=== PATIENT | female | born 1940 | race Caucasian/White ===

== ENCOUNTER 2020-09-15 05:56 | Inpatient (IN) | payer OTHER ==
[~2020-09-15] VITALS: Ht 154.9 cm; Wt 79.9 kg
[2020-09-15 06:53] LABS: Basophils # (auto) 0.1 10 ^3/uL (0-0.2); Basophils % (auto) 1.3 % (0.0-2.0); Eosinophils # (auto) 0.1 10 ^3/uL (0-0.8); Eosinophils % (auto) 0.8 % (0.0-7.0); Hematocrit 36.2 % (36.0-46.0); Hemoglobin 12.2 g/dL (12.2-16.2); Mean Corpuscular Hemoglobin 31.7 pg (28.0-32.0); Mean Corpuscular Hgb Conc. 33.6 g/dL (32.0-36.0); Mean Corpuscular Volume 94.5 fL (80.0-100.0); Monocytes # (auto) 0.6 10 ^3/uL (0-1.3); Monocytes % (auto) 5.6 % (0.0-12.0); Neutrophils # (auto) 8.9 10 ^3/uL (1.6-8.6); Neutrophils % (auto) 83.3 % (37.0-80.0); Platelet Count (auto) 236 10^3/uL (140-450); Red Blood Cells 3.83 10^6/uL (4.0-5.20); Red Cell Distribution Width 12.6 % (11.8-14.3); White Blood Cell 10.7 10^3/uL (4.4-10.8)
[2020-09-15 07:03] LABS: Chloride 106 mmol/L (98-107); Potassium 3.9 mmol/L (3.5-5.1); Sodium 137 mmol/L (136-145)
[2020-09-15 07:07] LABS: Alanine Aminotransferase 19 U/L (13-56); Albumin 3.3 g/dL (3.4-5.0); Anion Gap 7 (5-15); Aspartate Aminotransferase 17 U/L (15-37); BUN/Creatinine Ratio 18.8; Blood Urea Nitrogen 25 mg/dL (7-18); Calcium 8.3 mg/dL (8.5-10.1); Carbon Dioxide 24 mmol/L (21-32); GFR African American 49 mL/min; GFR Non-African American 41 mL/min; Glucose 222 mg/dL (74-106)
[2020-09-15 07:12] LABS: Alkaline Phosphatase 86 U/L (45-117); Bilirubin, Total 0.7 mg/dL (0.2-1.0)
[2020-09-15] MEDS ORDERED: ACETAMINOPHEN 325 MG TAB PO ONE ×2 (11:27→11:30)
[2020-09-15] MEDS ORDERED: ALBUTEROL SULF HFA 90MCG INH 200DOSE IN PRN (14:00)
[2020-09-15] MEDS ORDERED: DEXTROSE (50%) 50ML SYRG IV PRN (14:00)
[2020-09-15] MEDS ORDERED: traMADol HCL 50 MG TAB PO PRN (14:00)
[2020-09-15] MEDS ORDERED: LACTULOSE 20Gm/30ML SOLN PO PRN (14:00)
[2020-09-15] MEDS ORDERED: MORPHINE SULF INJ 2 MG/ML SYRINGE 1ML IV PRN ×2 (14:00)
[2020-09-15] MEDS ORDERED: ACETAMINOPHEN 500 MG TAB PO PRN (14:00)
[2020-09-15] MEDS ORDERED: ONDANSETRON HCL 4 MG/2 ML VIAL IV PRN (14:00)
[2020-09-15] MEDS ORDERED: NITROGLYCERIN 0.4 MG SL TAB SL PRN (14:00)
[2020-09-15] MEDS: SODIUM CHLOR 0.9% PF (SALINE LOCK) 10ML VIAL/SYR IV SCH (14:52)
[2020-09-15] MEDS: InsuLIN REG 1unit/0.01ml Soln (100units/ml) SC SCH (17:41)
[2020-09-15] MEDS: ACCU-CHEK COMFORT CURVE STRIP VI SCH (17:42)
[2020-09-16] MEDS: SODIUM CHLOR 0.9% PF (SALINE LOCK) 10ML VIAL/SYR IV SCH ×2 (06:00→15:59)
[2020-09-16] MEDS: CARVEDILOL 3.125 MG TAB PO SCH ×2 (06:00→10:06)
[2020-09-16] MEDS: ATORVASTATIN 20 MG TAB PO SCH (06:01)
[2020-09-16] MEDS: InsuLIN REG 1unit/0.01ml Soln (100units/ml) SC SCH ×4 (06:01→17:00)
[2020-09-16] MEDS: ENOXAPARIN SOD 40 MG/0.4 ML SYRINGE SC SCH ×2 (06:01→16:09)
[2020-09-16] MEDS: ACCU-CHEK COMFORT CURVE STRIP VI SCH ×4 (06:02→17:00)
[2020-09-16 06:29] LABS: Basophils # (auto) 0 10 ^3/uL (0-0.2); Basophils % (auto) 0.4 % (0.0-2.0); Eosinophils # (auto) 0.1 10 ^3/uL (0-0.8); Eosinophils % (auto) 1.9 % (0.0-7.0); Hematocrit 34.6 % (36.0-46.0); Hemoglobin 11.5 g/dL (12.2-16.2); Lymphocytes # (auto) 1.5 10 ^3/uL (0.4-5.4); Lymphocytes % (auto) 24.5 % (10.0-50.0); Mean Corpuscular Hemoglobin 31.9 pg (28.0-32.0); Mean Corpuscular Hgb Conc. 33.1 g/dL (32.0-36.0); Mean Corpuscular Volume 96.1 fL (80.0-100.0); Monocytes # (auto) 0.5 10 ^3/uL (0-1.3); Monocytes % (auto) 8.5 % (0.0-12.0); Neutrophils # (auto) 3.9 10 ^3/uL (1.6-8.6); Neutrophils % (auto) 64.7 % (37.0-80.0); Nucleated Red Blood Cells % 0.1 %; Platelet Count (auto) 220 10^3/uL (140-450); Red Cell Distribution Width 12.8 % (11.8-14.3); White Blood Cell 6.1 10^3/uL (4.4-10.8)
[2020-09-16 06:51] LABS: Potassium 4.2 mmol/L (3.5-5.1)
[2020-09-16 07:01] LABS: BUN/Creatinine Ratio 14.5; Calcium 9.1 mg/dL (8.5-10.1); Total Protein 6.7 g/dL (6.4-8.2)
[2020-09-16] MEDS ORDERED: levoFLOXacin 500MG 100 ML IV SCH (10:00)
[2020-09-16] MEDS: DexAMETHasone SOD PHOS 10MG/1ML VIAL INJ IV SCH (10:05)
[2020-09-16] MEDS: CHOLECALCIFEROL (VITD3) 2,000 UNIT CAP PO SCH (10:06)
[2020-09-16] MEDS: ASPirin 81 mg TAB PO SCH (10:06)
[2020-09-16] MEDS: NITROGLYCERIN 0.2MG/HR TOPICAL PATCH TD SCH (10:07)
[2020-09-16] MEDS: ASCORBIC ACID 1,000 MG TAB PO SCH (10:07)
[2020-09-16] MEDS: ZINC SULFATE 220mg CAP or TAB PO SCH (10:07)
[2020-09-16] MEDS: BUDESONIDE (INHALATION) 180 MCG IH IN SCH ×2 (15:58→16:17)
[2020-09-16] MEDS: SODIUM CHLORIDE 0.9% 1,000 ML IV SCH (16:16)
[2020-09-16] MEDS ORDERED: CLOPIDOGREL BISULFATE 75 MG TAB PO ONE (17:00)
[2020-09-16] MEDS ORDERED: ALBUTEROL SULF 2.5 MG/0.5ML(0.5%) NEB SOLN NEB PRN (19:00)
[2020-09-16 20:32] LABS: Urine Bacteria FEW /hpf (None Seen); Urine Blood Negative /uL (Negative); Urine Specific Gravity 1.015 (1.001-1.035); Urine WBC 3 /hpf (0 - 5)
[2020-09-17] MEDS ORDERED: ACETYLCYSTEINE PO FOR APAP TOX 200 MG/ML ML ONE (00:56)
[2020-09-17] MEDS: CARVEDILOL 3.125 MG TAB PO SCH ×3 (01:11→21:42)
[2020-09-17] MEDS: SODIUM CHLOR 0.9% PF (SALINE LOCK) 10ML VIAL/SYR IV SCH ×4 (01:11→21:41)
[2020-09-17] MEDS: ATORVASTATIN 20 MG TAB PO SCH ×2 (01:12→21:42)
[2020-09-17] MEDS: ACETYLCYSTEINE ORAL for CIN 20%(200MG/ML) 4ML PO SCH ×3 (01:12→21:43)
[2020-09-17] MEDS: ACCU-CHEK COMFORT CURVE STRIP VI SCH ×5 (01:13→22:16)
[2020-09-17] MEDS: ENOXAPARIN SOD 40 MG/0.4 ML SYRINGE SC SCH ×3 (01:13→21:43)
[2020-09-17] MEDS: InsuLIN REG 1unit/0.01ml Soln (100units/ml) SC SCH ×5 (01:58→22:15)
--- NOTE | 2020-09-17 02:35 | NUR ---
Telemetry admit from ER THI MARTINEZ admitted to Telemetry unit. Patient oriented to primary RN, unit, room, bed, and unit policies regarding patient care and visiting hours. Patient now on continuous telemetry monitoring, tele box # 61 and telemetry reading on arrival to unit is NSR. Patient weighed by bedscale and encouraged to call if they need something. All questions and concerns addressed, patient verbalized understanding. Bed in lowest locked position, call light within reach, side rails up x2, fall precautions in place. Will continue to monitor Q1hr and PRN.
[2020-09-17 02:50] VITALS: BP 145/98
[2020-09-17 05:00] VITALS: BP 135/69
[2020-09-17] MEDS: IPRATROPIUM BROM 0.5 MG/2.5ML INH SOL NEB SCH ×3 (06:51→20:21)
[2020-09-17] MEDS: ALBUTEROL SULF 2.5 MG/0.5ML(0.5%) NEB SOLN NEB SCH ×3 (06:52→20:21)
[2020-09-17 08:00] VITALS: BP 144/71
[2020-09-17] MEDS: SODIUM CHLORIDE 0.9% 1,000 ML IV SCH (08:40)
[2020-09-17 09:22] LABS: Basophils # (auto) 0 10 ^3/uL (0-0.2); Basophils % (auto) 0.2 % (0.0-2.0); Eosinophils # (auto) 0 10 ^3/uL (0-0.8); Eosinophils % (auto) 0.1 % (0.0-7.0); Hematocrit 33.5 % (36.0-46.0); Hemoglobin 11.3 g/dL (12.2-16.2); Lymphocytes % (auto) 10.1 % (10.0-50.0); Mean Corpuscular Hemoglobin 31.8 pg (28.0-32.0); Mean Corpuscular Hgb Conc. 33.7 g/dL (32.0-36.0); Mean Corpuscular Volume 94.3 fL (80.0-100.0); Monocytes # (auto) 0.5 10 ^3/uL (0-1.3); Monocytes % (auto) 5.5 % (0.0-12.0); Neutrophils # (auto) 8.3 10 ^3/uL (1.6-8.6); Neutrophils % (auto) 84.1 % (37.0-80.0); Platelet Count (auto) 276 10^3/uL (140-450); Red Blood Cells 3.55 10^6/uL (4.0-5.20); Red Cell Distribution Width 13.1 % (11.8-14.3); White Blood Cell 9.9 10^3/uL (4.4-10.8)
[2020-09-17 09:36] LABS: INR 1.03 (0.9-1.15); Partial Thromboplastin Time 29.9 sec (23.0-31.2)
[2020-09-17] MEDS: DexAMETHasone SOD PHOS 10MG/1ML VIAL INJ IV SCH (09:44)
[2020-09-17] MEDS: ZINC SULFATE 220mg CAP or TAB PO SCH (09:44)
[2020-09-17] MEDS: ASCORBIC ACID 1,000 MG TAB PO SCH (09:45)
[2020-09-17] MEDS: CHOLECALCIFEROL (VITD3) 2,000 UNIT CAP PO SCH (09:45)
[2020-09-17] MEDS: levoFLOXacin 250MG 50 ML IV SCH (10:05)
[2020-09-17] MEDS: CLOPIDOGREL BISULFATE 75 MG TAB PO SCH (10:06)
[2020-09-17] MEDS: ASPirin 81 mg TAB PO SCH (10:06)
[2020-09-17 10:08] LABS: Albumin 3.4 g/dL (3.4-5.0); BUN/Creatinine Ratio 16.7; Bilirubin, Total 0.7 mg/dL (0.2-1.0); CRP High Sensitivity 8.85 mg/dL (< 0.3); Calcium 9.2 mg/dL (8.5-10.1); Potassium 3.9 mmol/L (3.5-5.1); Total Protein 7.3 g/dL (6.4-8.2)
[2020-09-17] MEDS: NITROGLYCERIN 0.2MG/HR TOPICAL PATCH TD SCH (10:08)
--- NOTE | 2020-09-17 11:32 | NUR ---
Nutrition Assessment Est energy needs 2729-0543 kcal (25-27 kcal/kg BW 67kg) Est protein needs 54-67g (0.8-1g/kg BW 67kg) Will monitor and reassess prn. Addendum: 09/17/20 at [address] Amended: Links added.
[2020-09-17] MEDS ORDERED: LIDOCAINE 2%HCL (LOCAL ANESTH.) INJ 20ML MDV ONE (11:40)
[2020-09-17] MEDS ORDERED: IODIXANOL 320MG/ML 100ML BTL IV ONE ×2 (11:40→12:51)
--- NOTE | 2020-09-17 12:30 | NUR ---
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 ATTEMPT P.T. TOMORROW.
[2020-09-17] MEDS ORDERED: ANGIOMAX 250 MG VIAL IV ONE (12:34)
[2020-09-17] MEDS ORDERED: VERAPAMIL 2.5MG/ML INJ 2ML VIAL IV ONE (12:35)
[2020-09-17] MEDS ORDERED: SODIUM CHL 0.9% 0 ML ONE (12:35)
[2020-09-17] MEDS ORDERED: fentaNYL CITRATE 100 MCG/2 ML VL ONE (12:35)
[2020-09-17] MEDS ORDERED: MIDAZOLAM HCL 1MG/1ML-2 ML VIAL ONE (12:35)
[2020-09-17] MEDS ORDERED: HEPARIN SODIUM (PORCINE) 5000 UNITS/ML 1ML VIAL ONE (12:36)
[2020-09-17 14:23] VITALS: BP 135/68
--- NOTE | 2020-09-17 15:06 | NUR ---
PT OFF FLOOR TO RADIOCOMMUNICATIONS TECHNICIAN, RETURNED TO FLOOR AT 1345. BAND IN PLACE TO RIGHT WRIST. AIR REMOVED Q 10 MINUTES, NO BLEEDING NOTED. PRESSURE DRESSING APPLIED. RESTING IN BED. BED ALARM IN PLACE
--- NOTE | 2020-09-17 16:22 | NUR ---
Pt is an alert and oriented female that resides with her family. Pt functions independently and manages her own ADLs with no assistance. Pt provided information on advance directives and pt states she will review with her daughter, Delmi. Pt has transportation home with no limitations. Will continue to monitor and provide intervention as appropriate. Addendum: 09/17/20 at 1623 by AD DUMONT Amended: Links added.
--- NOTE | 2020-09-17 19:11 | NUR ---
RECEIVED CALL FROM TELE ROOM THAT PT IS OFF TELE. UNABLE TO FIND TELE BOX, PT WAS OFF FLOOR TO GRAIN HANDLER AND RETURNED TO FLOOR ABOUT 1345. CALL PLACED TO GRAIN HANDLER AND RN STATED SHE WOULD LOOK FOR TELE BOX. TELE ROOM ALSO NOTIFIED THAT PT DOES NOT HAVE TELE BOX.
--- NOTE | 2020-09-17 19:20 | NUR ---
assumed care, pt. awake, no c/o pain, dressing on rt. wrist dry and intact, no sob.
[2020-09-17 21:00] VITALS: BP 101/48
[2020-09-18] MEDS: SODIUM CHLORIDE 0.9% 1,000 ML IV SCH (01:20)
[2020-09-18 05:00] VITALS: BP 122/55
[2020-09-18] MEDS: SODIUM CHLOR 0.9% PF (SALINE LOCK) 10ML VIAL/SYR IV SCH ×2 (05:48→12:56)
[2020-09-18] MEDS: InsuLIN REG 1unit/0.01ml Soln (100units/ml) SC SCH ×2 (06:20→11:30)
[2020-09-18] MEDS: ACCU-CHEK COMFORT CURVE STRIP VI SCH ×2 (06:21→11:30)
[2020-09-18] MEDS: IPRATROPIUM BROM 0.5 MG/2.5ML INH SOL NEB SCH ×2 (07:34→12:55)
[2020-09-18] MEDS: ALBUTEROL SULF 2.5 MG/0.5ML(0.5%) NEB SOLN NEB SCH ×2 (07:36→12:55)
[2020-09-18 08:00] LABS: Albumin 2.9 g/dL (3.4-5.0); BUN/Creatinine Ratio 18.7; Calcium 8.5 mg/dL (8.5-10.1)
[2020-09-18 08:02] LABS: Basophils # (auto) 0 10 ^3/uL (0-0.2); Basophils % (auto) 0.4 % (0.0-2.0); Eosinophils # (auto) 0.4 10 ^3/uL (0-0.8); Eosinophils % (auto) 5.3 % (0.0-7.0); Hemoglobin 10.3 g/dL (12.2-16.2); Lymphocytes # (auto) 1.5 10 ^3/uL (0.4-5.4); Lymphocytes % (auto) 21.7 % (10.0-50.0); Mean Corpuscular Hemoglobin 31.9 pg (28.0-32.0); Mean Corpuscular Hgb Conc. 33.3 g/dL (32.0-36.0); Mean Corpuscular Volume 95.8 fL (80.0-100.0); Monocytes # (auto) 0.4 10 ^3/uL (0-1.3); Monocytes % (auto) 6.3 % (0.0-12.0); Neutrophils # (auto) 4.5 10 ^3/uL (1.6-8.6); Neutrophils % (auto) 66.3 % (37.0-80.0); Platelet Count (auto) 249 10^3/uL (140-450); Red Blood Cells 3.24 10^6/uL (4.0-5.20); Red Cell Distribution Width 12.6 % (11.8-14.3); White Blood Cell 6.8 10^3/uL (4.4-10.8)
[2020-09-18 08:03] LABS: Bilirubin, Total 0.5 mg/dL (0.2-1.0)
[2020-09-18 09:00] VITALS: BP 151/91
[2020-09-18] MEDS: ZINC SULFATE 220mg CAP or TAB PO SCH (09:17)
[2020-09-18] MEDS: CHOLECALCIFEROL (VITD3) 2,000 UNIT CAP PO SCH (09:17)
[2020-09-18] MEDS: ASCORBIC ACID 1,000 MG TAB PO SCH (09:17)
[2020-09-18] MEDS: DexAMETHasone SOD PHOS 10MG/1ML VIAL INJ IV SCH (09:17)
[2020-09-18] MEDS: NITROGLYCERIN 0.2MG/HR TOPICAL PATCH TD SCH (10:00)
[2020-09-18] MEDS: levoFLOXacin 250MG 50 ML IV SCH (10:35)
[2020-09-18] MEDS: CARVEDILOL 3.125 MG TAB PO SCH (10:36)
[2020-09-18] MEDS: ASPirin 81 mg TAB PO SCH (10:36)
[2020-09-18] MEDS: CLOPIDOGREL BISULFATE 75 MG TAB PO SCH (10:36)
[2020-09-18] MEDS ORDERED: CARV6.2551 PO (10:37)
[2020-09-18] MEDS ORDERED: ASPI81CH43 PO (10:37)
[2020-09-18] MEDS: ENOXAPARIN SOD 40 MG/0.4 ML SYRINGE SC SCH (10:37)
[2020-09-18] MEDS ORDERED: ATOR20TA50 PO (10:37)
[2020-09-18] MEDS ORDERED: ALBU108A5 IN (10:37)
[2020-09-18] MEDS ORDERED: LISI-275 PO (10:37)
--- NOTE | 2020-09-18 11:42 | NUR ---
PULSE OXIMETRY 93% ROOM AIR, AFTER 02 HAD BEEN OFF FOR 15 MINUTES. Addendum: 09/18/20 at 1510 by RADHA SALES RN NOTE IN ERROR- WRONG PATIENT!
[2020-09-18 13:00] VITALS: BP 124/51
[2020-09-18 13:10] VITALS: BP 124/51
--- NOTE | 2020-09-18 13:39 | NUR ---
DAUGHTER HEIDY NOTIFIED VIA TELEPHONE THAT PT WILL BE DISCHARGED HOME TODAY.
--- NOTE | 2020-09-18 16:18 | NUR ---
DISCHARGE INSTRUCTIONS GIVEN TO PT. IV AND TELE BOX REMOVED. ALL APPROPRIATE PAPERWORK SIGNED. PT DISCHARGED HOME WITH FAMILY.
== END 2020-09-18 16:15 | disposition home or self-care (01) | DRG 287 ==
LOC: EDBD 05:56 → ER 05:56 → TELE 05:57 → TELE-WESTW 09-17 02:30
PROVIDERS: ADMIT Internal Medicine; ATTEND Hospitalist
PROC: 4A023N7 Measurement of Cardiac Sampling and Pressure, Left Heart, Percutaneous Approach (ICD-10-PCS; principal; 2020-09-17)
PROC: B211YZZ Fluoroscopy of Multiple Coronary Arteries using Other Contrast (ICD-10-PCS; 2020-09-17)
PROC: B215YZZ Fluoroscopy of Left Heart using Other Contrast (ICD-10-PCS; 2020-09-17)
DX: R07.9 Chest pain, unspecified (principal); I13.0 Hypertensive heart and chronic kidney disease with heart failure and stage 1 through stage 4 chronic kidney disease, or unspecified chronic kidney disease; J98.11 Atelectasis; I50.9 Heart failure, unspecified; E11.65 Type 2 diabetes mellitus with hyperglycemia; F03.90 Unspecified dementia, unspecified severity, without behavioral disturbance, psychotic disturbance, mood disturbance, and anxiety; J44.9 Chronic obstructive pulmonary disease, unspecified; Z20.828 Contact with and (suspected) exposure to other viral communicable diseases; G20 Parkinson's disease; N18.9 Chronic kidney disease, unspecified; E11.21 Type 2 diabetes mellitus with diabetic nephropathy; E11.22 Type 2 diabetes mellitus with diabetic chronic kidney disease; E66.9 Obesity, unspecified; E78.5 Hyperlipidemia, unspecified; F41.9 Anxiety disorder, unspecified; I70.0 Atherosclerosis of aorta; M85.80 Other specified disorders of bone density and structure, unspecified site; Z79.4 Long term (current) use of insulin; I25.2 Old myocardial infarction; Z82.49 Family history of ischemic heart disease and other diseases of the circulatory system; Z86.73 Personal history of transient ischemic attack (TIA), and cerebral infarction without residual deficits; Z87.891 Personal history of nicotine dependence; Z90.710 Acquired absence of both cervix and uterus; Z95.5 Presence of coronary angioplasty implant and graft; Z90.49 Acquired absence of other specified parts of digestive tract; Z68.27 Body mass index [BMI] 27.0-27.9, adult
CPT/HCPCS: 36415; 71045; 78582; 80053; 81001; 82550; 82728; 82962; 83036; 83880; 84443; 84484; 85025; 85379; 85610; 85652; 85730; 86141; 87426; 93005; 93306; 93458; 93970; 94640; 97163; 99152; 99291; G0378; J1100; J1815; J1956; J2250; J2405; Q9967

== ENCOUNTER 2020-09-27 16:09 | Inpatient (IN) | payer OTHER ==
[~2020-09-27] VITALS: Ht 162.6 cm; Wt 79.0 kg
[~2020-09-27 16:09] MED LIST: ALBU108A5 IN; ASPI81CH43 PO; ATOR20TA50 PO; CARV6.2551 PO; LISI-275 PO
[2020-09-27 17:05] LABS: Basophils # (auto) 0 10 ^3/uL (0-0.2); Basophils % (auto) 0.4 % (0.0-2.0); Eosinophils # (auto) 0 10 ^3/uL (0-0.8); Hematocrit 30.9 % (36.0-46.0); Hemoglobin 10.5 g/dL (12.2-16.2); Lymphocytes # (auto) 0.6 10 ^3/uL (0.4-5.4); Lymphocytes % (auto) 11.1 % (10.0-50.0); Mean Corpuscular Hemoglobin 31.9 pg (28.0-32.0); Mean Corpuscular Hgb Conc. 34.1 g/dL (32.0-36.0); Mean Corpuscular Volume 93.6 fL (80.0-100.0); Monocytes # (auto) 0.4 10 ^3/uL (0-1.3); Monocytes % (auto) 7.4 % (0.0-12.0); Neutrophils # (auto) 4.6 10 ^3/uL (1.6-8.6); Neutrophils % (auto) 81.1 % (37.0-80.0); White Blood Cell 5.7 10^3/uL (4.4-10.8)
[2020-09-27 17:27] LABS: Albumin 2.9 g/dL (3.4-5.0); Calcium 8.2 mg/dL (8.5-10.1); Magnesium 2.6 mg/dL (1.6-2.6); Potassium 4.3 mmol/L (3.5-5.1)
[2020-09-27 17:32] LABS: INR 0.94 (0.9-1.15); Partial Thromboplastin Time 26.8 sec (23.0-31.2)
[2020-09-27 17:34] LABS: BUN/Creatinine Ratio 17.7; Bilirubin, Total 0.6 mg/dL (0.2-1.0); Total Protein 7.1 g/dL (6.4-8.2)
[2020-09-27] MEDS ORDERED: HEPARIN SODIUM (PORCINE) 5000 UNITS/ML 1ML VIAL IV ONE ×2 (21:15→22:00)
[2020-09-27] MEDS ORDERED: cefTRIAXone 1GM/50ML D5W 50 ML IV ONE (21:30)
[2020-09-27] MEDS ORDERED: AZITHROMYCIN 500MG/ 250ML 250 ML IV ONE (22:00)
[2020-09-27] MEDS ORDERED: HEPARIN DRIP/D5W 100UNITS/ML 250 ML IV SCH (22:30)
[2020-09-28] MEDS ORDERED: DOCUSATE SOD 100 MG CAP PO PRN (01:45)
[2020-09-28] MEDS ORDERED: ACETAMINOPHEN 325 MG TAB PO PRN (01:45)
[2020-09-28] MEDS ORDERED: DEXTROSE (50%) 50ML SYRG IV PRN (01:45)
[2020-09-28] MEDS ORDERED: MORPHINE SULFATE INJECTION 2 MG/ML SYRG IV PRN (01:45)
[2020-09-28] MEDS ORDERED: NITROGLYCERIN 0.4 MG SL TAB SL PRN (01:45)
[2020-09-28] MEDS ORDERED: ONDANSETRON HCL 4 MG/2 ML VIAL IV PRN (01:45)
[2020-09-28] MEDS: SODIUM CHLOR 0.9% PF (SALINE LOCK) 10ML VIAL/SYR IV SCH ×3 (04:46→22:26)
[2020-09-28] MEDS ORDERED: LACTATED RINGER'S 2,450 ML IV ONE (06:30)
[2020-09-28] MEDS: BUDESONIDE (INHALATION) 180 MCG IH IN SCH ×2 (10:00→22:40)
[2020-09-28 10:16] LABS: Basophils # (auto) 0 10 ^3/uL (0-0.2); Basophils % (auto) 0.3 % (0.0-2.0); Eosinophils # (auto) 0 10 ^3/uL (0-0.8); Hematocrit 35.2 % (36.0-46.0); Hemoglobin 11.9 g/dL (12.2-16.2); Lymphocytes # (auto) 0.6 10 ^3/uL (0.4-5.4); Lymphocytes % (auto) 9.1 % (10.0-50.0); Mean Corpuscular Hemoglobin 31.7 pg (28.0-32.0); Mean Corpuscular Hgb Conc. 33.9 g/dL (32.0-36.0); Mean Corpuscular Volume 93.6 fL (80.0-100.0); Monocytes # (auto) 0.3 10 ^3/uL (0-1.3); Monocytes % (auto) 5.6 % (0.0-12.0); Neutrophils # (auto) 5.3 10 ^3/uL (1.6-8.6); Nucleated Red Blood Cells % 0.1 %; Red Blood Cells 3.77 10^6/uL (4.0-5.20); Red Cell Distribution Width 13.4 % (11.8-14.3); White Blood Cell 6.2 10^3/uL (4.4-10.8)
[2020-09-28 10:32] LABS: Potassium 4.3 mmol/L (3.5-5.1)
[2020-09-28 10:46] LABS: Albumin 2.9 g/dL (3.4-5.0); BUN/Creatinine Ratio 25.3; Bilirubin, Total 0.4 mg/dL (0.2-1.0); Calcium 8.3 mg/dL (8.5-10.1); Magnesium 2.8 mg/dL (1.6-2.6); Total Protein 6.7 g/dL (6.4-8.2)
[2020-09-28] MEDS: InsuLIN REG 1unit/0.01ml Soln (100units/ml) SC SCH ×3 (11:30→22:27)
[2020-09-28] MEDS: ACCU-CHEK COMFORT CURVE STRIP VI SCH ×3 (11:30→22:26)
[2020-09-28] MEDS: DexAMETHasone SOD PHOS 10MG/1ML VIAL INJ IV SCH (11:44)
[2020-09-28] MEDS: FAMOTIDINE (10MG/ML) 2ML VL IV SCH (11:45)
[2020-09-28] MEDS: DOXYCYCLINE 100MG/250ML 250 ML IV SCH ×2 (11:45→22:26)
[2020-09-28] MEDS: MULTIPLE VITAMIN TAB PO SCH (11:45)
[2020-09-28] MEDS: ZINC SULFATE 220mg CAP or TAB PO SCH (11:45)
[2020-09-28] MEDS: ASCORBIC ACID 1,000 MG TAB PO SCH (11:46)
[2020-09-28] MEDS: CHOLECALCIFEROL (VITD3) 2,000 UNIT CAP/TAB PO SCH (11:46)
[2020-09-28] MEDS: HEPARIN SODIUM (PORCINE) 5000 UNITS/ML 1ML VIAL SC SCH ×2 (11:47→22:27)
[2020-09-28 13:00] VITALS: BP 157/84
[2020-09-28 17:00] VITALS: BP 122/60
[2020-09-28 22:00] VITALS: BP 133/58
[2020-09-28] MEDS: ALBUTEROL SULF HFA 90MCG INH 200DOSE IN PRN (23:54)
[2020-09-29 05:00] VITALS: BP 135/87
[2020-09-29] MEDS: SODIUM CHLOR 0.9% PF (SALINE LOCK) 10ML VIAL/SYR IV SCH ×3 (06:20→22:22)
[2020-09-29] MEDS: ACCU-CHEK COMFORT CURVE STRIP VI SCH ×4 (07:04→22:24)
[2020-09-29] MEDS: InsuLIN REG 1unit/0.01ml Soln (100units/ml) SC SCH ×4 (07:04→22:24)
[2020-09-29 07:45] LABS: Basophils # (auto) 0 10 ^3/uL (0-0.2); Basophils % (auto) 0.3 % (0.0-2.0); Eosinophils # (auto) 0 10 ^3/uL (0-0.8); Hematocrit 35.2 % (36.0-46.0); Hemoglobin 12.1 g/dL (12.2-16.2); Lymphocytes # (auto) 0.5 10 ^3/uL (0.4-5.4); Lymphocytes % (auto) 6.5 % (10.0-50.0); Mean Corpuscular Hemoglobin 31.8 pg (28.0-32.0); Mean Corpuscular Hgb Conc. 34.3 g/dL (32.0-36.0); Mean Corpuscular Volume 92.7 fL (80.0-100.0); Monocytes # (auto) 0.3 10 ^3/uL (0-1.3); Monocytes % (auto) 4.4 % (0.0-12.0); Neutrophils # (auto) 6.4 10 ^3/uL (1.6-8.6); Neutrophils % (auto) 88.8 % (37.0-80.0); Red Cell Distribution Width 13.2 % (11.8-14.3); White Blood Cell 7.3 10^3/uL (4.4-10.8)
[2020-09-29 07:56] LABS: Potassium 4.3 mmol/L (3.5-5.1)
[2020-09-29] MEDS: BUDESONIDE (INHALATION) 180 MCG IH IN SCH ×2 (08:02→23:20)
[2020-09-29] MEDS: ALBUTEROL SULF HFA 90MCG INH 200DOSE IN PRN ×2 (08:02→23:20)
[2020-09-29 08:11] LABS: Albumin 2.6 g/dL (3.4-5.0); BUN/Creatinine Ratio 24.5; Bilirubin, Total 0.5 mg/dL (0.2-1.0); CRP High Sensitivity 15.1 mg/dL (< 0.3); Calcium 8.9 mg/dL (8.5-10.1); Total Protein 7.4 g/dL (6.4-8.2)
[2020-09-29 09:00] VITALS: BP 142/67
[2020-09-29] MEDS: CHOLECALCIFEROL (VITD3) 2,000 UNIT CAP/TAB PO SCH (10:00)
[2020-09-29] MEDS: DexAMETHasone SOD PHOS 10MG/1ML VIAL INJ IV SCH (11:02)
[2020-09-29] MEDS: DOXYCYCLINE 100MG/250ML 250 ML IV SCH ×2 (11:03→22:22)
[2020-09-29] MEDS: FAMOTIDINE (10MG/ML) 2ML VL IV SCH (11:03)
[2020-09-29] MEDS: ZINC SULFATE 220mg CAP or TAB PO SCH (11:04)
[2020-09-29] MEDS: ASPirin 81 mg TAB PO SCH (11:04)
[2020-09-29] MEDS: MULTIPLE VITAMIN TAB PO SCH (11:07)
[2020-09-29] MEDS: ASCORBIC ACID 1,000 MG TAB PO SCH (11:07)
[2020-09-29] MEDS: HEPARIN SODIUM (PORCINE) 5000 UNITS/ML 1ML VIAL SC SCH ×2 (11:08→22:23)
[2020-09-29] MEDS: HYDROcodone-ACET 5/325MG TAB PO PRN ×2 (11:08→23:56)
[2020-09-29] MEDS: CARVEDILOL 3.125 MG TAB PO SCH ×2 (11:10→22:23)
[2020-09-29 13:00] VITALS: BP 129/66
[2020-09-29] MEDS ORDERED: REMDESIVIR PER PHARMACY 0 ML IV SCH (14:30)
[2020-09-29] MEDS ORDERED: REMDESIVIR 200 MG in NS 210ml LOADING DOSE ADULT IV ONE (15:00)
[2020-09-29 17:00] VITALS: BP 109/57
[2020-09-29 22:00] VITALS: BP 112/51
[2020-09-29] MEDS: ATORVASTATIN 20 MG TAB PO SCH (22:23)
[2020-09-30] MEDS: SODIUM CHLOR 0.9% PF (SALINE LOCK) 10ML VIAL/SYR IV SCH ×3 (06:08→22:00)
[2020-09-30] MEDS: ACCU-CHEK COMFORT CURVE STRIP VI SCH ×4 (06:19→22:00)
[2020-09-30] MEDS: InsuLIN REG 1unit/0.01ml Soln (100units/ml) SC SCH ×4 (06:21→22:00)
[2020-09-30 07:10] LABS: Basophils # (auto) 0 10 ^3/uL (0-0.2); Basophils % (auto) 0.1 % (0.0-2.0); Eosinophils # (auto) 0 10 ^3/uL (0-0.8); Hematocrit 34.9 % (36.0-46.0); Hemoglobin 11.6 g/dL (12.2-16.2); Lymphocytes # (auto) 0.3 10 ^3/uL (0.4-5.4); Lymphocytes % (auto) 4.5 % (10.0-50.0); Mean Corpuscular Hemoglobin 31.4 pg (28.0-32.0); Mean Corpuscular Hgb Conc. 33.2 g/dL (32.0-36.0); Mean Corpuscular Volume 94.6 fL (80.0-100.0); Monocytes # (auto) 0.4 10 ^3/uL (0-1.3); Monocytes % (auto) 5.4 % (0.0-12.0); Neutrophils # (auto) 6.9 10 ^3/uL (1.6-8.6); Nucleated Red Blood Cells % 0.2 %; Red Blood Cells 3.69 10^6/uL (4.0-5.20); Red Cell Distribution Width 13.3 % (11.8-14.3); White Blood Cell 7.7 10^3/uL (4.4-10.8)
[2020-09-30 07:39] LABS: Potassium 4.8 mmol/L (3.5-5.1)
[2020-09-30] MEDS: ALBUTEROL SULF HFA 90MCG INH 200DOSE IN PRN ×2 (08:06→18:40)
[2020-09-30] MEDS: BUDESONIDE (INHALATION) 180 MCG IH IN SCH ×2 (08:06→18:40)
[2020-09-30 08:40] LABS: Albumin 2.4 g/dL (3.4-5.0); BUN/Creatinine Ratio 24.3; Bilirubin, Total 0.6 mg/dL (0.2-1.0); CRP High Sensitivity 13.5 mg/dL (< 0.3); Total Protein 7.2 g/dL (6.4-8.2)
[2020-09-30 09:00] VITALS: BP 113/41
[2020-09-30] MEDS: DOXYCYCLINE 100MG/250ML 250 ML IV SCH ×2 (11:03→22:00)
[2020-09-30] MEDS: DexAMETHasone SOD PHOS 10MG/1ML VIAL INJ IV SCH (11:24)
[2020-09-30] MEDS: ASPirin 81 mg TAB PO SCH (11:28)
[2020-09-30] MEDS: FAMOTIDINE (10MG/ML) 2ML VL IV SCH (11:28)
[2020-09-30] MEDS: MULTIPLE VITAMIN TAB PO SCH (11:29)
[2020-09-30] MEDS: ZINC SULFATE 220mg CAP or TAB PO SCH (11:32)
[2020-09-30] MEDS: CHOLECALCIFEROL (VITD3) 2,000 UNIT CAP/TAB PO SCH (11:33)
[2020-09-30] MEDS: ASCORBIC ACID 1,000 MG TAB PO SCH (11:34)
[2020-09-30] MEDS: HEPARIN SODIUM (PORCINE) 5000 UNITS/ML 1ML VIAL SC SCH ×2 (11:47→22:00)
[2020-09-30] MEDS: CARVEDILOL 3.125 MG TAB PO SCH ×2 (11:55→22:00)
[2020-09-30 13:00] VITALS: BP 112/89
[2020-09-30 16:25] VITALS: BP 137/49
[2020-09-30] MEDS: REMDESIVIR 100 MG in SODIUM CHL 0.9% 250 ML IV SCH (16:40)
[2020-09-30 18:00] VITALS: BP 113/81
[2020-09-30] MEDS: ATORVASTATIN 20 MG TAB PO SCH (22:00)
[2020-10-01] MEDS: ACCU-CHEK COMFORT CURVE STRIP VI SCH ×4 (05:58→22:28)
[2020-10-01] MEDS: SODIUM CHLOR 0.9% PF (SALINE LOCK) 10ML VIAL/SYR IV SCH ×3 (05:58→21:59)
[2020-10-01] MEDS: InsuLIN REG 1unit/0.01ml Soln (100units/ml) SC SCH ×3 (05:59→22:30)
[2020-10-01 09:00] VITALS: BP 136/67
[2020-10-01 09:19] LABS: Basophils # (auto) 0 10 ^3/uL (0-0.2); Basophils % (auto) 0.2 % (0.0-2.0); Eosinophils # (auto) 0 10 ^3/uL (0-0.8); Hematocrit 33.4 % (36.0-46.0); Hemoglobin 11.4 g/dL (12.2-16.2); Lymphocytes # (auto) 0.4 10 ^3/uL (0.4-5.4); Lymphocytes % (auto) 5.5 % (10.0-50.0); Mean Corpuscular Hemoglobin 31.5 pg (28.0-32.0); Mean Corpuscular Hgb Conc. 34.2 g/dL (32.0-36.0); Mean Corpuscular Volume 92.2 fL (80.0-100.0); Monocytes # (auto) 0.7 10 ^3/uL (0-1.3); Monocytes % (auto) 9.2 % (0.0-12.0); Neutrophils # (auto) 6.6 10 ^3/uL (1.6-8.6); Neutrophils % (auto) 85.1 % (37.0-80.0); Red Blood Cells 3.62 10^6/uL (4.0-5.20); Red Cell Distribution Width 13.2 % (11.8-14.3); White Blood Cell 7.8 10^3/uL (4.4-10.8)
[2020-10-01 09:28] LABS: Potassium 4.5 mmol/L (3.5-5.1)
[2020-10-01 09:41] LABS: Albumin 2.4 g/dL (3.4-5.0); BUN/Creatinine Ratio 32.9; Bilirubin, Total 0.6 mg/dL (0.2-1.0); CRP High Sensitivity 8.52 mg/dL (< 0.3); Calcium 9.1 mg/dL (8.5-10.1); Total Protein 6.8 g/dL (6.4-8.2)
[2020-10-01] MEDS: DexAMETHasone SOD PHOS 10MG/1ML VIAL INJ IV SCH (10:06)
[2020-10-01] MEDS: FAMOTIDINE (10MG/ML) 2ML VL IV SCH (10:07)
[2020-10-01] MEDS: ASPirin 81 mg TAB PO SCH (10:07)
[2020-10-01] MEDS: DOXYCYCLINE 100MG/250ML 250 ML IV SCH ×2 (10:07→22:07)
[2020-10-01] MEDS: CARVEDILOL 3.125 MG TAB PO SCH ×2 (10:08→22:27)
[2020-10-01] MEDS: MULTIPLE VITAMIN TAB PO SCH (10:08)
[2020-10-01] MEDS: ZINC SULFATE 220mg CAP or TAB PO SCH (10:08)
[2020-10-01] MEDS: ASCORBIC ACID 1,000 MG TAB PO SCH (10:08)
[2020-10-01] MEDS: CHOLECALCIFEROL (VITD3) 2,000 UNIT CAP/TAB PO SCH (10:09)
[2020-10-01] MEDS: HEPARIN SODIUM (PORCINE) 5000 UNITS/ML 1ML VIAL SC SCH ×2 (11:10→22:11)
[2020-10-01 13:00] VITALS: BP 137/67
[2020-10-01] MEDS: REMDESIVIR 100 MG in SODIUM CHL 0.9% 250 ML IV SCH (16:00)
[2020-10-01 17:00] VITALS: BP 127/64
[2020-10-01] MEDS: BUDESONIDE (INHALATION) 180 MCG IH IN SCH (20:50)
[2020-10-01] MEDS: ATORVASTATIN 20 MG TAB PO SCH (22:09)
[2020-10-01] MEDS: HYDROcodone-ACET 5/325MG TAB PO PRN (22:12)
[2020-10-02 05:00] VITALS: BP 136/76
[2020-10-02] MEDS: SODIUM CHLOR 0.9% PF (SALINE LOCK) 10ML VIAL/SYR IV SCH ×3 (06:00→21:31)
[2020-10-02] MEDS: ACCU-CHEK COMFORT CURVE STRIP VI SCH ×4 (06:12→21:34)
[2020-10-02] MEDS: InsuLIN REG 1unit/0.01ml Soln (100units/ml) SC SCH ×5 (06:14→21:39)
[2020-10-02 07:37] LABS: Basophils # (auto) 0 10 ^3/uL (0-0.2); Basophils % (auto) 0.2 % (0.0-2.0); Eosinophils # (auto) 0 10 ^3/uL (0-0.8); Hematocrit 34.8 % (36.0-46.0); Hemoglobin 11.7 g/dL (12.2-16.2); Lymphocytes # (auto) 0.4 10 ^3/uL (0.4-5.4); Lymphocytes % (auto) 3.6 % (10.0-50.0); Mean Corpuscular Hemoglobin 31.3 pg (28.0-32.0); Mean Corpuscular Hgb Conc. 33.8 g/dL (32.0-36.0); Mean Corpuscular Volume 92.7 fL (80.0-100.0); Monocytes # (auto) 1.1 10 ^3/uL (0-1.3); Monocytes % (auto) 10.7 % (0.0-12.0); Neutrophils # (auto) 8.7 10 ^3/uL (1.6-8.6); Neutrophils % (auto) 85.5 % (37.0-80.0); Nucleated Red Blood Cells % 0.1 %; Red Blood Cells 3.75 10^6/uL (4.0-5.20); Red Cell Distribution Width 13.5 % (11.8-14.3); White Blood Cell 10.1 10^3/uL (4.4-10.8)
[2020-10-02] MEDS: BUDESONIDE (INHALATION) 180 MCG IH IN SCH ×3 (07:38→20:02)
[2020-10-02] MEDS: ALBUTEROL SULF HFA 90MCG INH 200DOSE IN PRN ×2 (07:38→21:43)
[2020-10-02 08:18] LABS: Albumin 2.5 g/dL (3.4-5.0); Potassium 4.6 mmol/L (3.5-5.1)
[2020-10-02 08:23] LABS: BUN/Creatinine Ratio 32.1; Bilirubin, Total 0.7 mg/dL (0.2-1.0); Calcium 9.2 mg/dL (8.5-10.1); Total Protein 6.7 g/dL (6.4-8.2)
[2020-10-02 08:39] LABS: CRP High Sensitivity 5.06 mg/dL (< 0.3)
[2020-10-02 09:00] VITALS: BP 141/74
[2020-10-02] MEDS: CARVEDILOL 3.125 MG TAB PO SCH ×2 (10:00→21:32)
[2020-10-02] MEDS: ZINC SULFATE 220mg CAP or TAB PO SCH (10:00)
[2020-10-02] MEDS ORDERED: FAMOTIDINE (10MG/ML) 2ML VL IV SCH (10:00)
[2020-10-02] MEDS: HEPARIN SODIUM (PORCINE) 5000 UNITS/ML 1ML VIAL SC SCH ×2 (10:00→21:34)
[2020-10-02] MEDS: DexAMETHasone SOD PHOS 10MG/1ML VIAL INJ IV SCH (10:00)
[2020-10-02] MEDS: CHOLECALCIFEROL (VITD3) 2,000 UNIT CAP/TAB PO SCH (10:00)
[2020-10-02] MEDS: MULTIPLE VITAMIN TAB PO SCH (10:00)
[2020-10-02] MEDS: FAMOTIDINE (10MG/ML) 2ML VL IV SCH (10:00)
[2020-10-02] MEDS: DOXYCYCLINE 100MG/250ML 250 ML IV SCH ×2 (10:00→21:31)
[2020-10-02] MEDS: ASCORBIC ACID 1,000 MG TAB PO SCH (10:00)
[2020-10-02] MEDS: ASPirin 81 mg TAB PO SCH (10:00)
[2020-10-02 13:00] VITALS: BP 137/70
[2020-10-02 16:15] VITALS: BP 133/68
[2020-10-02] MEDS: REMDESIVIR 100 MG in SODIUM CHL 0.9% 250 ML IV SCH (16:20)
[2020-10-02 17:00] VITALS: BP 135/62
[2020-10-02 17:10] VITALS: BP 136/67
[2020-10-02] MEDS: ATORVASTATIN 20 MG TAB PO SCH (21:32)
[2020-10-03] MEDS: HYDROcodone-ACET 5/325MG TAB PO PRN (02:11)
[2020-10-03 05:53] LABS: Basophils # (auto) 0 10 ^3/uL (0-0.2); Basophils % (auto) 0.1 % (0.0-2.0); Eosinophils # (auto) 0 10 ^3/uL (0-0.8); Eosinophils % (auto) 0.1 % (0.0-7.0); Hematocrit 33.8 % (36.0-46.0); Hemoglobin 11.3 g/dL (12.2-16.2); Lymphocytes # (auto) 0.6 10 ^3/uL (0.4-5.4); Lymphocytes % (auto) 5.5 % (10.0-50.0); Mean Corpuscular Hemoglobin 30.7 pg (28.0-32.0); Mean Corpuscular Hgb Conc. 33.3 g/dL (32.0-36.0); Mean Corpuscular Volume 92.2 fL (80.0-100.0); Monocytes # (auto) 0.9 10 ^3/uL (0-1.3); Monocytes % (auto) 8.9 % (0.0-12.0); Neutrophils # (auto) 8.5 10 ^3/uL (1.6-8.6); Neutrophils % (auto) 85.4 % (37.0-80.0); Nucleated Red Blood Cells % 0.2 %; Red Blood Cells 3.66 10^6/uL (4.0-5.20); Red Cell Distribution Width 13.4 % (11.8-14.3)
[2020-10-03 06:05] LABS: Albumin 2.5 g/dL (3.4-5.0); Calcium 8.9 mg/dL (8.5-10.1); Potassium 4.2 mmol/L (3.5-5.1)
[2020-10-03 06:16] LABS: BUN/Creatinine Ratio 31.7; Bilirubin, Total 0.7 mg/dL (0.2-1.0); CRP High Sensitivity 5.23 mg/dL (< 0.3); Total Protein 6.5 g/dL (6.4-8.2)
[2020-10-03] MEDS: SODIUM CHLOR 0.9% PF (SALINE LOCK) 10ML VIAL/SYR IV SCH ×3 (06:22→21:14)
[2020-10-03] MEDS: ACCU-CHEK COMFORT CURVE STRIP VI SCH ×4 (06:22→21:16)
[2020-10-03] MEDS: InsuLIN REG 1unit/0.01ml Soln (100units/ml) SC SCH ×4 (06:26→21:16)
[2020-10-03 08:00] VITALS: BP 156/70
[2020-10-03] MEDS: CHOLECALCIFEROL (VITD3) 2,000 UNIT CAP/TAB PO SCH (09:17)
[2020-10-03] MEDS: DexAMETHasone SOD PHOS 10MG/1ML VIAL INJ IV SCH (09:17)
[2020-10-03] MEDS: FAMOTIDINE (10MG/ML) 2ML VL IV SCH (09:17)
[2020-10-03] MEDS: ZINC SULFATE 220mg CAP or TAB PO SCH (09:17)
[2020-10-03] MEDS: ASPirin 81 mg TAB PO SCH (09:17)
[2020-10-03] MEDS: MULTIPLE VITAMIN TAB PO SCH (09:18)
[2020-10-03] MEDS: ASCORBIC ACID 1,000 MG TAB PO SCH (09:18)
[2020-10-03] MEDS: CARVEDILOL 3.125 MG TAB PO SCH ×2 (09:19→21:14)
[2020-10-03] MEDS: HEPARIN SODIUM (PORCINE) 5000 UNITS/ML 1ML VIAL SC SCH ×2 (09:40→21:16)
[2020-10-03] MEDS: LORazepam 2MG/ML-1ML VIAL IV PRN ×2 (14:21→21:15)
[2020-10-03] MEDS: REMDESIVIR 100 MG in SODIUM CHL 0.9% 250 ML IV SCH (15:27)
[2020-10-03 16:00] VITALS: BP 137/80
[2020-10-03] MEDS: ATORVASTATIN 20 MG TAB PO SCH (21:15)
[2020-10-03] MEDS: BUDESONIDE (INHALATION) 180 MCG IH IN SCH (22:00)
[2020-10-04] MEDS: LORazepam 2MG/ML-1ML VIAL IV PRN ×3 (03:41→20:35)
[2020-10-04] MEDS: SODIUM CHLOR 0.9% PF (SALINE LOCK) 10ML VIAL/SYR IV SCH ×3 (06:15→22:13)
[2020-10-04] MEDS: InsuLIN REG 1unit/0.01ml Soln (100units/ml) SC SCH ×4 (06:20→22:27)
[2020-10-04] MEDS: ACCU-CHEK COMFORT CURVE STRIP VI SCH ×4 (06:27→22:00)
[2020-10-04 07:32] LABS: Basophils # (auto) 0 10 ^3/uL (0-0.2); Eosinophils # (auto) 0 10 ^3/uL (0-0.8); Eosinophils % (auto) 0.1 % (0.0-7.0); Mean Corpuscular Hemoglobin 31.7 pg (28.0-32.0)
[2020-10-04 07:34] LABS: Basophils % (auto) 0.3 % (0.0-2.0); Hemoglobin 12.1 g/dL (12.2-16.2); Lymphocytes # (auto) 0.5 10 ^3/uL (0.4-5.4); Lymphocytes % (auto) 3.7 % (10.0-50.0); Mean Corpuscular Hgb Conc. 34.5 g/dL (32.0-36.0); Monocytes # (auto) 0.4 10 ^3/uL (0-1.3); Neutrophils # (auto) 11.8 10 ^3/uL (1.6-8.6); Neutrophils % (auto) 92.9 % (37.0-80.0); Nucleated Red Blood Cells % 0.1 %; Red Blood Cells 3.81 10^6/uL (4.0-5.20); White Blood Cell 12.8 10^3/uL (4.4-10.8)
[2020-10-04 07:45] LABS: Albumin 2.6 g/dL (3.4-5.0); Calcium 8.9 mg/dL (8.5-10.1); Potassium 4.3 mmol/L (3.5-5.1)
[2020-10-04 07:55] LABS: BUN/Creatinine Ratio 28.6; Bilirubin, Total 1.1 mg/dL (0.2-1.0); CRP High Sensitivity 10.4 mg/dL (< 0.3); Total Protein 7.2 g/dL (6.4-8.2)
[2020-10-04 08:00] VITALS: BP 162/53
[2020-10-04] MEDS: ALBUTEROL SULF HFA 90MCG INH 200DOSE IN PRN (09:40)
[2020-10-04] MEDS: BUDESONIDE (INHALATION) 180 MCG IH IN SCH ×2 (09:40→22:00)
[2020-10-04] MEDS: CHOLECALCIFEROL (VITD3) 2,000 UNIT CAP/TAB PO SCH (10:00)
[2020-10-04] MEDS: ASPirin 81 mg TAB PO SCH (10:00)
[2020-10-04] MEDS: MULTIPLE VITAMIN TAB PO SCH (10:00)
[2020-10-04] MEDS: ASCORBIC ACID 1,000 MG TAB PO SCH (10:00)
[2020-10-04] MEDS: ZINC SULFATE 220mg CAP or TAB PO SCH (10:00)
[2020-10-04] MEDS: CARVEDILOL 3.125 MG TAB PO SCH ×2 (10:00→22:00)
[2020-10-04] MEDS: HEPARIN SODIUM (PORCINE) 5000 UNITS/ML 1ML VIAL SC SCH ×2 (10:48→22:15)
[2020-10-04 12:00] VITALS: BP 158/81
[2020-10-04] MEDS: DexAMETHasone SOD PHOS 10MG/1ML VIAL INJ IV SCH (12:34)
[2020-10-04] MEDS: FAMOTIDINE (10MG/ML) 2ML VL IV SCH (12:34)
[2020-10-04 16:00] VITALS: BP 140/76
[2020-10-04 22:00] VITALS: BP 102/63
[2020-10-04] MEDS: ATORVASTATIN 20 MG TAB PO SCH (22:00)
[2020-10-05] MEDS: LORazepam 2MG/ML-1ML VIAL IV PRN ×3 (02:23→14:49)
[2020-10-05 05:03] VITALS: BP 137/75
[2020-10-05] MEDS: SODIUM CHLOR 0.9% PF (SALINE LOCK) 10ML VIAL/SYR IV SCH ×3 (05:37→21:26)
[2020-10-05] MEDS: InsuLIN REG 1unit/0.01ml Soln (100units/ml) SC SCH ×4 (06:16→22:04)
[2020-10-05] MEDS: ACCU-CHEK COMFORT CURVE STRIP VI SCH ×4 (06:22→22:00)
[2020-10-05 07:23] LABS: Basophils # (auto) 0 10 ^3/uL (0-0.2); Basophils % (auto) 0.1 % (0.0-2.0); Eosinophils # (auto) 0 10 ^3/uL (0-0.8); Hemoglobin 12.3 g/dL (12.2-16.2); Monocytes # (auto) 0.3 10 ^3/uL (0-1.3)
[2020-10-05 07:26] LABS: Hematocrit 35.3 % (36.0-46.0); Lymphocytes # (auto) 0.5 10 ^3/uL (0.4-5.4); Mean Corpuscular Hemoglobin 32.2 pg (28.0-32.0); Mean Corpuscular Hgb Conc. 34.8 g/dL (32.0-36.0); Mean Corpuscular Volume 92.5 fL (80.0-100.0); Monocytes % (auto) 2.4 % (0.0-12.0); Neutrophils # (auto) 11.4 10 ^3/uL (1.6-8.6); Neutrophils % (auto) 93.5 % (37.0-80.0); Red Blood Cells 3.81 10^6/uL (4.0-5.20); Red Cell Distribution Width 13.6 % (11.8-14.3); White Blood Cell 12.2 10^3/uL (4.4-10.8)
[2020-10-05 07:47] LABS: Potassium 4.4 mmol/L (3.5-5.1)
[2020-10-05 07:59] LABS: Albumin 2.6 g/dL (3.4-5.0); BUN/Creatinine Ratio 28.8; Bilirubin, Total 1.1 mg/dL (0.2-1.0); CRP High Sensitivity 18.7 mg/dL (< 0.3); Calcium 9.8 mg/dL (8.5-10.1); Total Protein 7.6 g/dL (6.4-8.2)
[2020-10-05] MEDS: HALOPERIDOL LACTATE 5 MG/ML INJ VIAL IM PRN ×2 (08:44→21:23)
[2020-10-05 09:00] VITALS: BP 138/75
[2020-10-05] MEDS: ASCORBIC ACID 1,000 MG TAB PO SCH (10:00)
[2020-10-05] MEDS: ZINC SULFATE 220mg CAP or TAB PO SCH (10:00)
[2020-10-05] MEDS: MULTIPLE VITAMIN TAB PO SCH (10:00)
[2020-10-05] MEDS: ASPirin 81 mg TAB PO SCH (10:00)
[2020-10-05] MEDS: CHOLECALCIFEROL (VITD3) 2,000 UNIT CAP/TAB PO SCH (10:00)
[2020-10-05] MEDS: CARVEDILOL 3.125 MG TAB PO SCH ×2 (10:00→21:27)
[2020-10-05] MEDS: BUDESONIDE (INHALATION) 180 MCG IH IN SCH ×2 (10:00→21:30)
[2020-10-05] MEDS: HEPARIN SODIUM (PORCINE) 5000 UNITS/ML 1ML VIAL SC SCH ×2 (12:25→21:21)
[2020-10-05] MEDS: DexAMETHasone SOD PHOS 10MG/1ML VIAL INJ IV SCH (12:25)
[2020-10-05] MEDS: FAMOTIDINE (10MG/ML) 2ML VL IV SCH (12:25)
[2020-10-05 12:44] VITALS: BP 157/87
[2020-10-05 16:37] VITALS: BP 120/52
[2020-10-05] MEDS: ATORVASTATIN 20 MG TAB PO SCH (21:29)
[2020-10-05 22:00] VITALS: BP 142/75
[2020-10-06] MEDS: ACCU-CHEK COMFORT CURVE STRIP VI SCH ×4 (06:33→17:55)
[2020-10-06] MEDS: SODIUM CHLOR 0.9% PF (SALINE LOCK) 10ML VIAL/SYR IV SCH ×3 (06:34→21:59)
[2020-10-06] MEDS: InsuLIN REG 1unit/0.01ml Soln (100units/ml) SC SCH ×4 (06:37→18:05)
[2020-10-06 07:30] LABS: Basophils # (auto) 0 10 ^3/uL (0-0.2); Basophils % (auto) 0.2 % (0.0-2.0); Eosinophils # (auto) 0 10 ^3/uL (0-0.8); Lymphocytes # (auto) 0.3 10 ^3/uL (0.4-5.4); Lymphocytes % (auto) 2.2 % (10.0-50.0); Monocytes # (auto) 0.3 10 ^3/uL (0-1.3); Monocytes % (auto) 2.4 % (0.0-12.0)
[2020-10-06 07:31] LABS: Hematocrit 37.2 % (36.0-46.0); Hemoglobin 12.8 g/dL (12.2-16.2); Mean Corpuscular Hemoglobin 32.3 pg (28.0-32.0); Mean Corpuscular Hgb Conc. 34.3 g/dL (32.0-36.0); Mean Corpuscular Volume 94.1 fL (80.0-100.0); Neutrophils # (auto) 12.3 10 ^3/uL (1.6-8.6); Neutrophils % (auto) 95.2 % (37.0-80.0); Nucleated Red Blood Cells % 0.1 %; Red Blood Cells 3.95 10^6/uL (4.0-5.20); Red Cell Distribution Width 13.9 % (11.8-14.3); White Blood Cell 12.9 10^3/uL (4.4-10.8)
[2020-10-06 08:00] VITALS: BP 153/94
[2020-10-06] MEDS: BUDESONIDE (INHALATION) 180 MCG IH IN SCH ×2 (09:21→22:00)
[2020-10-06] MEDS: DexAMETHasone SOD PHOS 10MG/1ML VIAL INJ IV SCH (09:22)
[2020-10-06] MEDS: FAMOTIDINE (10MG/ML) 2ML VL IV SCH (09:22)
[2020-10-06] MEDS: MULTIPLE VITAMIN TAB PO SCH (09:24)
[2020-10-06] MEDS: ASCORBIC ACID 1,000 MG TAB PO SCH (09:24)
[2020-10-06] MEDS: ASPirin 81 mg TAB PO SCH (09:24)
[2020-10-06] MEDS: ZINC SULFATE 220mg CAP or TAB PO SCH (09:24)
[2020-10-06] MEDS: CARVEDILOL 3.125 MG TAB PO SCH ×2 (09:24→21:36)
[2020-10-06] MEDS: CHOLECALCIFEROL (VITD3) 2,000 UNIT CAP/TAB PO SCH (09:24)
[2020-10-06 09:27] LABS: BUN/Creatinine Ratio 34.4; Calcium 9.7 mg/dL (8.5-10.1); Potassium 4.8 mmol/L (3.5-5.1)
[2020-10-06] MEDS ORDERED: PPN PER PHARMACY 0 ML IV SCH (09:45)
[2020-10-06] MEDS: METOPROLOL TARTRATE 1MG/1ML-5ML VIAL IV PRN ×3 (10:33→21:22)
[2020-10-06] MEDS: HEPARIN SODIUM (PORCINE) 5000 UNITS/ML 1ML VIAL SC SCH ×2 (10:34→21:30)
[2020-10-06 10:47] LABS: Albumin 2.5 g/dL (3.4-5.0); Bilirubin, Direct 0.3 mg/dL (0-0.2); Bilirubin, Total 0.9 mg/dL (0.2-1.0); Magnesium 2.9 mg/dL (1.6-2.6); Pre Albumin 10.7 mg/dL (20.0-40.0); Total Protein 7.7 g/dL (6.4-8.2)
[2020-10-06] MEDS ORDERED: DEXTROSE (50%) 50ML SYRG IV SCH (12:17)
[2020-10-06] MEDS: LORazepam 2MG/ML-1ML VIAL IV PRN (12:25)
[2020-10-06 16:00] VITALS: BP 145/78
[2020-10-06] MEDS: PPN PER PHARMACY IV NR ×5 (20:10)
[2020-10-06] MEDS: ATORVASTATIN 20 MG TAB PO SCH (21:37)
[2020-10-06 22:17] VITALS: BP 134/90
[2020-10-07] MEDS: InsuLIN REG 1unit/0.01ml Soln (100units/ml) SC SCH ×4 (00:20→18:26)
[2020-10-07] MEDS: ACCU-CHEK COMFORT CURVE STRIP VI SCH ×4 (00:23→18:21)
[2020-10-07] MEDS: METOPROLOL TARTRATE 1MG/1ML-5ML VIAL IV PRN (01:35)
[2020-10-07 05:00] VITALS: BP 147/58
[2020-10-07] MEDS: BUDESONIDE (INHALATION) 180 MCG IH IN SCH ×2 (05:52→21:22)
[2020-10-07] MEDS: SODIUM CHLOR 0.9% PF (SALINE LOCK) 10ML VIAL/SYR IV SCH ×3 (06:04→21:17)
[2020-10-07 07:13] LABS: Eosinophils # (auto) 0 10 ^3/uL (0-0.8); Lymphocytes # (auto) 0.3 10 ^3/uL (0.4-5.4); Monocytes # (auto) 0.4 10 ^3/uL (0-1.3); Nucleated Red Blood Cells % 0.1 %
[2020-10-07 07:15] LABS: Basophils # (auto) 0 10 ^3/uL (0-0.2); Basophils % (auto) 0.3 % (0.0-2.0); Hematocrit 39.6 % (36.0-46.0); Hemoglobin 12.9 g/dL (12.2-16.2); Lymphocytes % (auto) 1.7 % (10.0-50.0); Mean Corpuscular Hemoglobin 30.7 pg (28.0-32.0); Mean Corpuscular Hgb Conc. 32.6 g/dL (32.0-36.0); Mean Corpuscular Volume 94.3 fL (80.0-100.0); Monocytes % (auto) 2.6 % (0.0-12.0); Neutrophils # (auto) 14.1 10 ^3/uL (1.6-8.6); Neutrophils % (auto) 95.4 % (37.0-80.0); Red Blood Cells 4.19 10^6/uL (4.0-5.20); Red Cell Distribution Width 14.1 % (11.8-14.3); White Blood Cell 14.8 10^3/uL (4.4-10.8)
[2020-10-07 07:32] LABS: Albumin 2.5 g/dL (3.4-5.0); Calcium 9.9 mg/dL (8.5-10.1); Potassium 4.5 mmol/L (3.5-5.1)
[2020-10-07 07:35] LABS: BUN/Creatinine Ratio 36.4; Bilirubin, Total 0.8 mg/dL (0.2-1.0); Magnesium 3.4 mg/dL (1.6-2.6); Phosphorus 3.6 mg/dL (2.5-4.90); Total Protein 7.5 g/dL (6.4-8.2)
[2020-10-07 08:30] VITALS: BP 145/94
[2020-10-07] MEDS: CHOLECALCIFEROL (VITD3) 2,000 UNIT CAP/TAB PO SCH (10:00)
[2020-10-07] MEDS: MULTIPLE VITAMIN TAB PO SCH (10:00)
[2020-10-07] MEDS ORDERED: D5W 5% 1,000 ML IV SCH (10:00)
[2020-10-07] MEDS: ZINC SULFATE 220mg CAP or TAB PO SCH (10:00)
[2020-10-07] MEDS: CARVEDILOL 3.125 MG TAB PO SCH ×2 (10:00→22:00)
[2020-10-07] MEDS: ASCORBIC ACID 1,000 MG TAB PO SCH (10:00)
[2020-10-07] MEDS: ASPirin 81 mg TAB PO SCH (10:00)
[2020-10-07] MEDS: DexAMETHasone SOD PHOS 10MG/1ML VIAL INJ IV SCH (11:02)
[2020-10-07] MEDS: FAMOTIDINE (10MG/ML) 2ML VL IV SCH (11:02)
[2020-10-07] MEDS: HEPARIN SODIUM (PORCINE) 5000 UNITS/ML 1ML VIAL SC SCH ×2 (11:14→21:03)
[2020-10-07] MEDS: LORazepam 2MG/ML-1ML VIAL IV PRN (11:38)
[2020-10-07] MEDS: INSULIN LANTUS (GLARGINE) 1 /0.01ml (100units/ml) SC SCH ×2 (12:22→21:04)
[2020-10-07] MEDS: SODIUM BICARBONATE 50ML VIAL 50 ML in D5W 5% 1,000 ML IV SCH (13:00)
[2020-10-07 16:00] VITALS: BP 100/58
[2020-10-07] MEDS: AMINO ACID INFUSION IN D10W 1,000 ML IV NR ×2 (19:49→20:21)
[2020-10-07] MEDS: PPN PER PHARMACY IV NR ×5 (19:51)
[2020-10-07] MEDS ORDERED: PPN PER PHARMACY IV NR ×6 (20:00)
[2020-10-07] MEDS: ATORVASTATIN 20 MG TAB PO SCH (21:20)
[2020-10-08] VITALS: BP 148/92
[2020-10-08] MEDS: ACCU-CHEK COMFORT CURVE STRIP VI SCH ×6 (00:47→23:06)
[2020-10-08] MEDS: InsuLIN REG 1unit/0.01ml Soln (100units/ml) SC SCH ×6 (00:48→22:52)
[2020-10-08] MEDS: SODIUM BICARBONATE 50ML VIAL 50 ML in D5W 5% 1,000 ML IV SCH ×2 (00:59→10:00)
[2020-10-08] MEDS: SODIUM CHLOR 0.9% PF (SALINE LOCK) 10ML VIAL/SYR IV SCH ×3 (06:04→21:28)
[2020-10-08] MEDS: INSULIN LANTUS (GLARGINE) 1 /0.01ml (100units/ml) SC SCH ×2 (06:06→22:52)
[2020-10-08 08:28] VITALS: BP 119/77
[2020-10-08 08:52] LABS: Potassium 4.4 mmol/L (3.5-5.1)
[2020-10-08 09:31] LABS: Albumin 2.4 g/dL (3.4-5.0); BUN/Creatinine Ratio 40.5; Bilirubin, Total 0.7 mg/dL (0.2-1.0); Calcium 9.6 mg/dL (8.5-10.1); Magnesium 3.2 mg/dL (1.6-2.6); Phosphorus 3.5 mg/dL (2.5-4.90); Total Protein 7.3 g/dL (6.4-8.2)
[2020-10-08] MEDS: BUDESONIDE (INHALATION) 180 MCG IH IN SCH ×2 (10:00→22:00)
[2020-10-08] MEDS: ASPirin 81 mg TAB PO SCH (10:00)
[2020-10-08] MEDS: ASCORBIC ACID 1,000 MG TAB PO SCH (10:00)
[2020-10-08] MEDS: ZINC SULFATE 220mg CAP or TAB PO SCH (10:00)
[2020-10-08] MEDS: CHOLECALCIFEROL (VITD3) 2,000 UNIT CAP/TAB PO SCH (10:00)
[2020-10-08] MEDS: MULTIPLE VITAMIN TAB PO SCH (10:00)
[2020-10-08] MEDS: CARVEDILOL 3.125 MG TAB PO SCH ×2 (10:00→21:28)
[2020-10-08] MEDS: FAMOTIDINE (10MG/ML) 2ML VL IV SCH (10:43)
[2020-10-08] MEDS: HEPARIN SODIUM (PORCINE) 5000 UNITS/ML 1ML VIAL SC SCH ×2 (10:43→21:30)
[2020-10-08] MEDS: DexAMETHasone SOD PHOS 10MG/1ML VIAL INJ IV SCH (10:43)
[2020-10-08] MEDS ORDERED: DEXTROSE (50%) 50ML SYRG IV PRN (12:00)
[2020-10-08] MEDS: D5W 5% 1,000 ML IV SCH ×2 (12:08→20:57)
[2020-10-08 12:20] LABS: Urine Bacteria FEW /hpf (None Seen); Urine Blood 1+ /uL (Negative); Urine Mucus FEW (None Seen); Urine WBC 20 /hpf (0 - 5)
[2020-10-08 13:16] LABS: Creatinine, Urine 122 mg/dL (30.0-125.0); Sodium Urine 13 mmol/L (40-220)
[2020-10-08 13:20] LABS: Protein, Urine 49.3 mg/dL (0.0-11.9)
[2020-10-08 16:09] VITALS: BP 133/72
[2020-10-08] MEDS ORDERED: PPN PER PHARMACY IV NR ×6 (20:00)
[2020-10-08] MEDS: ATORVASTATIN 20 MG TAB PO SCH (21:28)
[2020-10-09] VITALS: BP 150/84
[2020-10-09] MEDS: ACCU-CHEK COMFORT CURVE STRIP VI SCH ×5 (03:35→20:12)
[2020-10-09] MEDS: InsuLIN REG 1unit/0.01ml Soln (100units/ml) SC SCH ×6 (03:36→23:07)
[2020-10-09] MEDS: D5W 5% 1,000 ML IV SCH ×2 (03:49→11:45)
[2020-10-09] MEDS: SODIUM CHLOR 0.9% PF (SALINE LOCK) 10ML VIAL/SYR IV SCH ×3 (06:00→23:04)
[2020-10-09] MEDS: INSULIN LANTUS (GLARGINE) 1 /0.01ml (100units/ml) SC SCH ×2 (06:01→23:08)
[2020-10-09 08:00] VITALS: BP 135/89
[2020-10-09 08:39] LABS: Basophils # (auto) 0.1 10 ^3/uL (0-0.2); Basophils % (auto) 0.8 % (0.0-2.0); Eosinophils # (auto) 0 10 ^3/uL (0-0.8); Eosinophils % (auto) 0.1 % (0.0-7.0); Hemoglobin 12.5 g/dL (12.2-16.2); Lymphocytes # (auto) 0.4 10 ^3/uL (0.4-5.4); Lymphocytes % (auto) 2.4 % (10.0-50.0); Mean Corpuscular Hemoglobin 30.6 pg (28.0-32.0); Mean Corpuscular Hgb Conc. 32.2 g/dL (32.0-36.0); Mean Corpuscular Volume 95.1 fL (80.0-100.0); Monocytes # (auto) 0.5 10 ^3/uL (0-1.3); Monocytes % (auto) 3.2 % (0.0-12.0); Neutrophils # (auto) 15.4 10 ^3/uL (1.6-8.6); Neutrophils % (auto) 93.5 % (37.0-80.0); Nucleated Red Blood Cells % 0.1 %; White Blood Cell 16.5 10^3/uL (4.4-10.8)
[2020-10-09 08:43] LABS: Potassium 4.4 mmol/L (3.5-5.1)
[2020-10-09 09:20] LABS: Albumin 2.1 g/dL (3.4-5.0); BUN/Creatinine Ratio 43.5; Bilirubin, Total 0.8 mg/dL (0.2-1.0); Calcium 9.4 mg/dL (8.5-10.1); Magnesium 2.8 mg/dL (1.6-2.6); Phosphorus 3.3 mg/dL (2.5-4.90); Total Protein 6.8 g/dL (6.4-8.2)
[2020-10-09] MEDS: BUDESONIDE (INHALATION) 180 MCG IH IN SCH ×2 (10:00→22:00)
[2020-10-09] MEDS: ZINC SULFATE 220mg CAP or TAB PO SCH (10:00)
[2020-10-09] MEDS: MULTIPLE VITAMIN TAB PO SCH (10:00)
[2020-10-09] MEDS: ASCORBIC ACID 1,000 MG TAB PO SCH (10:00)
[2020-10-09] MEDS: CHOLECALCIFEROL (VITD3) 2,000 UNIT CAP/TAB PO SCH (10:00)
[2020-10-09] MEDS: CARVEDILOL 3.125 MG TAB PO SCH ×2 (10:00→22:00)
[2020-10-09] MEDS: ASPirin 81 mg TAB PO SCH (10:00)
[2020-10-09] MEDS: FAMOTIDINE (10MG/ML) 2ML VL IV SCH (11:36)
[2020-10-09] MEDS: HEPARIN SODIUM (PORCINE) 5000 UNITS/ML 1ML VIAL SC SCH ×2 (11:45→23:07)
[2020-10-09] MEDS ORDERED: METOPROLOL TARTRATE 1MG/1ML-5ML VIAL IV ONE (13:15)
[2020-10-09 16:00] VITALS: BP 105/68
[2020-10-09] MEDS ORDERED: METOPROLOL TARTRATE 1MG/1ML-5ML VIAL IV PRN (19:00)
[2020-10-09] MEDS ORDERED: PPN PER PHARMACY IV NR ×9 (20:00)
[2020-10-09] MEDS: METOPROLOL TARTRATE 1MG/1ML-5ML VIAL IV PRN (20:14)
[2020-10-09] MEDS: ATORVASTATIN 20 MG TAB PO SCH (22:00)
[2020-10-09] MEDS ORDERED: dilTIAZem 25 MG/5 ML VIAL IV ONE (22:45)
[2020-10-10 00:07] VITALS: BP 105/66
[2020-10-10] MEDS: D5W 5% 1,000 ML IV SCH ×4 (00:16→19:45)
[2020-10-10] MEDS ORDERED: DIGOXIN (250MCG/ML) 2 ML AMPULE IV SCH ×2 (00:30→00:45)
[2020-10-10] MEDS: DIGOXIN (250MCG/ML) 2 ML AMPULE IV PRN ×2 (00:31→01:17)
[2020-10-10] MEDS: METOPROLOL TARTRATE 1MG/1ML-5ML VIAL IV PRN ×4 (02:22→23:41)
[2020-10-10] MEDS: ACCU-CHEK COMFORT CURVE STRIP VI SCH ×7 (03:17→23:48)
[2020-10-10] MEDS: InsuLIN REG 1unit/0.01ml Soln (100units/ml) SC SCH ×6 (03:18→23:27)
[2020-10-10] MEDS: SODIUM CHLOR 0.9% PF (SALINE LOCK) 10ML VIAL/SYR IV SCH ×3 (06:05→22:00)
[2020-10-10] MEDS: INSULIN LANTUS (GLARGINE) 1 /0.01ml (100units/ml) SC SCH ×2 (06:06→23:28)
[2020-10-10 08:00] VITALS: BP 95/71
[2020-10-10] MEDS: FAMOTIDINE (10MG/ML) 2ML VL IV SCH (09:04)
[2020-10-10] MEDS: HEPARIN SODIUM (PORCINE) 5000 UNITS/ML 1ML VIAL SC SCH ×2 (09:20→23:28)
[2020-10-10] MEDS: BUDESONIDE (INHALATION) 180 MCG IH IN SCH ×2 (10:00→21:33)
[2020-10-10] MEDS: ASPirin 81 mg TAB PO SCH (10:00)
[2020-10-10] MEDS: ASCORBIC ACID 1,000 MG TAB PO SCH (10:00)
[2020-10-10] MEDS: ZINC SULFATE 220mg CAP or TAB PO SCH (10:00)
[2020-10-10] MEDS: CHOLECALCIFEROL (VITD3) 2,000 UNIT CAP/TAB PO SCH (10:00)
[2020-10-10] MEDS: MULTIPLE VITAMIN TAB PO SCH (10:00)
[2020-10-10] MEDS: CARVEDILOL 3.125 MG TAB PO SCH ×2 (10:00→22:00)
[2020-10-10 11:37] LABS: Potassium 4.5 mmol/L (3.5-5.1)
[2020-10-10 11:44] LABS: Albumin 2.2 g/dL (3.4-5.0); BUN/Creatinine Ratio 40.2; Bilirubin, Total 0.8 mg/dL (0.2-1.0); Calcium 9.2 mg/dL (8.5-10.1); Magnesium 2.9 mg/dL (1.6-2.6); Phosphorus 4.2 mg/dL (2.5-4.90); Total Protein 7.1 g/dL (6.4-8.2)
[2020-10-10 16:00] VITALS: BP 145/74
[2020-10-10] MEDS ORDERED: PPN PER PHARMACY IV NR ×5 (20:00)
[2020-10-10] MEDS: ALBUTEROL SULF HFA 90MCG INH 200DOSE IN PRN (21:33)
[2020-10-10] MEDS: ATORVASTATIN 20 MG TAB PO SCH (22:00)
[2020-10-11] VITALS: BP 110/66
[2020-10-11] MEDS: InsuLIN REG 1unit/0.01ml Soln (100units/ml) SC SCH ×6 (04:04→23:25)
[2020-10-11] MEDS: ACCU-CHEK COMFORT CURVE STRIP VI SCH ×6 (04:14→23:23)
[2020-10-11] MEDS: D5W 5% 1,000 ML IV SCH ×2 (04:17→11:47)
[2020-10-11] MEDS: SODIUM CHLOR 0.9% PF (SALINE LOCK) 10ML VIAL/SYR IV SCH ×3 (06:13→23:22)
[2020-10-11] MEDS: INSULIN LANTUS (GLARGINE) 1 /0.01ml (100units/ml) SC SCH ×2 (06:14→23:25)
[2020-10-11 08:29] VITALS: BP 103/63
[2020-10-11 09:06] LABS: Potassium 4.3 mmol/L (3.5-5.1)
[2020-10-11] MEDS: ASPirin 81 mg TAB PO SCH (09:13)
[2020-10-11] MEDS: BUDESONIDE (INHALATION) 180 MCG IH IN SCH ×2 (09:13→22:00)
[2020-10-11] MEDS: ZINC SULFATE 220mg CAP or TAB PO SCH (09:14)
[2020-10-11] MEDS: MULTIPLE VITAMIN TAB PO SCH (09:15)
[2020-10-11] MEDS: CHOLECALCIFEROL (VITD3) 2,000 UNIT CAP/TAB PO SCH (09:15)
[2020-10-11] MEDS: CARVEDILOL 3.125 MG TAB PO SCH ×2 (09:15→22:00)
[2020-10-11] MEDS: ASCORBIC ACID 1,000 MG TAB PO SCH (09:15)
[2020-10-11] MEDS: FAMOTIDINE (10MG/ML) 2ML VL IV SCH (09:23)
[2020-10-11] MEDS: HEPARIN SODIUM (PORCINE) 5000 UNITS/ML 1ML VIAL SC SCH ×2 (09:24→23:26)
[2020-10-11 09:34] LABS: BUN/Creatinine Ratio 42.7; Bilirubin, Total 0.8 mg/dL (0.2-1.0); Magnesium 2.7 mg/dL (1.6-2.6); Phosphorus 4.2 mg/dL (2.5-4.90); Pre Albumin 11.8 mg/dL (20.0-40.0); Total Protein 6.6 g/dL (6.4-8.2)
[2020-10-11 16:16] VITALS: BP 86/62
[2020-10-11] MEDS ORDERED: PPN PER PHARMACY IV NR ×8 (20:00)
[2020-10-11] MEDS: ATORVASTATIN 20 MG TAB PO SCH (22:00)
[2020-10-12] VITALS: BP 120/74
[2020-10-12] MEDS: ACCU-CHEK COMFORT CURVE STRIP VI SCH ×5 (03:33→20:53)
[2020-10-12] MEDS: InsuLIN REG 1unit/0.01ml Soln (100units/ml) SC SCH ×5 (03:33→20:59)
[2020-10-12] MEDS: INSULIN LANTUS (GLARGINE) 1 /0.01ml (100units/ml) SC SCH ×2 (06:06→20:59)
[2020-10-12] MEDS: SODIUM CHLOR 0.9% PF (SALINE LOCK) 10ML VIAL/SYR IV SCH ×3 (06:21→22:02)
[2020-10-12] MEDS: BUDESONIDE (INHALATION) 180 MCG IH IN SCH ×3 (08:02→22:00)
[2020-10-12] MEDS: ALBUTEROL SULF HFA 90MCG INH 200DOSE IN PRN (08:02)
[2020-10-12 08:19] LABS: Potassium 3.8 mmol/L (3.5-5.1)
[2020-10-12 08:24] LABS: BUN/Creatinine Ratio 48.2; Bilirubin, Total 0.9 mg/dL (0.2-1.0); Calcium 9.2 mg/dL (8.5-10.1); Magnesium 2.8 mg/dL (1.6-2.6); Phosphorus 3.2 mg/dL (2.5-4.90); Total Protein 6.5 g/dL (6.4-8.2)
[2020-10-12] MEDS: ZINC SULFATE 220mg CAP or TAB PO SCH (08:28)
[2020-10-12] MEDS: ASPirin 81 mg TAB PO SCH (08:28)
[2020-10-12] MEDS: MULTIPLE VITAMIN TAB PO SCH (08:29)
[2020-10-12] MEDS: CHOLECALCIFEROL (VITD3) 2,000 UNIT CAP/TAB PO SCH (08:29)
[2020-10-12] MEDS: CARVEDILOL 3.125 MG TAB PO SCH ×3 (08:29→22:02)
[2020-10-12] MEDS: ASCORBIC ACID 1,000 MG TAB PO SCH (08:29)
[2020-10-12 08:38] LABS: Basophils # (auto) 0.1 10 ^3/uL (0-0.2); Basophils % (auto) 0.4 % (0.0-2.0); Eosinophils # (auto) 0 10 ^3/uL (0-0.8); Eosinophils % (auto) 0.2 % (0.0-7.0); Hematocrit 38.2 % (36.0-46.0); Hemoglobin 12.4 g/dL (12.2-16.2); Lymphocytes # (auto) 0.8 10 ^3/uL (0.4-5.4); Lymphocytes % (auto) 3.5 % (10.0-50.0); Mean Corpuscular Hemoglobin 31.2 pg (28.0-32.0); Mean Corpuscular Hgb Conc. 32.5 g/dL (32.0-36.0); Mean Corpuscular Volume 96.2 fL (80.0-100.0); Monocytes # (auto) 0.9 10 ^3/uL (0-1.3); Monocytes % (auto) 4.3 % (0.0-12.0); Neutrophils # (auto) 19.8 10 ^3/uL (1.6-8.6); Neutrophils % (auto) 91.6 % (37.0-80.0); Nucleated Red Blood Cells % 0.3 %; Red Blood Cells 3.98 10^6/uL (4.0-5.20); Red Cell Distribution Width 13.8 % (11.8-14.3); White Blood Cell 21.6 10^3/uL (4.4-10.8)
[2020-10-12] MEDS: LORazepam 2MG/ML-1ML VIAL IV PRN (08:46)
[2020-10-12 08:51] VITALS: BP 81/60
[2020-10-12] MEDS: FAMOTIDINE (10MG/ML) 2ML VL IV SCH (10:45)
[2020-10-12] MEDS: HEPARIN SODIUM (PORCINE) 5000 UNITS/ML 1ML VIAL SC SCH ×2 (10:46→20:59)
[2020-10-12 16:41] VITALS: BP 119/80
[2020-10-12] MEDS ORDERED: POTASSIUM ACETATE IV NR ×7 (20:00)
[2020-10-12] MEDS ORDERED: POTASSIUM PHOSPHATE IV NR ×7 (20:00)
[2020-10-12] MEDS ORDERED: FAT EMULSION IV NR ×7 (20:00)
[2020-10-12] MEDS ORDERED: [UNRECOGNIZED DRUG - OTHER] IV NR ×7 (20:00)
[2020-10-12] MEDS: ATORVASTATIN 20 MG TAB PO SCH (22:00)
[2020-10-13] VITALS: BP 113/61
[2020-10-13] MEDS: ACCU-CHEK COMFORT CURVE STRIP VI SCH ×5 (00:31→18:10)
[2020-10-13] MEDS: InsuLIN REG 1unit/0.01ml Soln (100units/ml) SC SCH ×5 (00:31→18:13)
[2020-10-13] MEDS: INSULIN LANTUS (GLARGINE) 1 /0.01ml (100units/ml) SC SCH (06:03)
[2020-10-13] MEDS: SODIUM CHLOR 0.9% PF (SALINE LOCK) 10ML VIAL/SYR IV SCH ×2 (06:03→18:10)
[2020-10-13 07:56] LABS: Albumin 1.9 g/dL (3.4-5.0); Calcium 9.3 mg/dL (8.5-10.1); Potassium 3.8 mmol/L (3.5-5.1)
[2020-10-13 07:59] LABS: BUN/Creatinine Ratio 51.3; Bilirubin, Total 1.1 mg/dL (0.2-1.0); Phosphorus 4.2 mg/dL (2.5-4.90); Total Protein 6.4 g/dL (6.4-8.2)
[2020-10-13 09:32] VITALS: BP 112/62
[2020-10-13] MEDS: FAMOTIDINE (10MG/ML) 2ML VL IV SCH (09:35)
[2020-10-13] MEDS: ASPirin 81 mg TAB PO SCH (09:38)
[2020-10-13] MEDS: CARVEDILOL 3.125 MG TAB PO SCH (09:38)
[2020-10-13] MEDS: ZINC SULFATE 220mg CAP or TAB PO SCH (09:38)
[2020-10-13] MEDS: CHOLECALCIFEROL (VITD3) 2,000 UNIT CAP/TAB PO SCH (09:39)
[2020-10-13] MEDS: MULTIPLE VITAMIN TAB PO SCH (09:39)
[2020-10-13] MEDS: ASCORBIC ACID 1,000 MG TAB PO SCH (09:39)
[2020-10-13] MEDS: BUDESONIDE (INHALATION) 180 MCG IH IN SCH (09:41)
[2020-10-13] MEDS: HEPARIN SODIUM (PORCINE) 5000 UNITS/ML 1ML VIAL SC SCH (09:42)
[2020-10-13 16:05] VITALS: BP 102/54
[2020-10-13] MEDS ORDERED: MORPHINE SULFATE 4 MG/ML SYR/VIAL IV PRN (18:45)
[2020-10-13] MEDS ORDERED: LORazepam 2MG/ML-1ML VIAL IV PRN (18:45)
[2020-10-13] MEDS ORDERED: PPN PER PHARMACY IV NR ×6 (20:00)
== END 2020-10-13 23:10 | DRG 177 ==
LOC: ER 16:09 → EDUNIT# 16:09 → EDBD 16:09 → TELE 16:10 → EAST 09-28 10:04 → TELE-EAST 09-28 14:46
PROVIDERS: ADMIT Nurse Practitioner Family; ATTEND Internal Medicine
PROC: XW033E5 Introduction of Remdesivir Anti-infective into Peripheral Vein, Percutaneous Approach, New Technology Group 5 (ICD-10-PCS; principal; 2020-09-29)
PROC: 05HB33Z Insertion of Infusion Device into Right Basilic Vein, Percutaneous Approach (ICD-10-PCS; 2020-10-02)
PROC: B54MZZA Ultrasonography of Right Upper Extremity Veins, Guidance (ICD-10-PCS; 2020-10-02)
PROC: 5A09557 Assistance with Respiratory Ventilation, Greater than 96 Consecutive Hours, Continuous Positive Airway Pressure (ICD-10-PCS; 2020-10-03)
DX: U07.1 COVID-19 (principal); J96.01 Acute respiratory failure with hypoxia; N17.0 Acute kidney failure with tubular necrosis; G93.41 Metabolic encephalopathy; J12.82 Pneumonia due to coronavirus disease 2019; J98.11 Atelectasis; E87.2 Acidosis; E87.0 Hyperosmolality and hypernatremia; E87.1 Hypo-osmolality and hyponatremia; I24.9 Acute ischemic heart disease, unspecified; I13.0 Hypertensive heart and chronic kidney disease with heart failure and stage 1 through stage 4 chronic kidney disease, or unspecified chronic kidney disease; J44.0 Chronic obstructive pulmonary disease with (acute) lower respiratory infection; Z66 Do not resuscitate; E11.65 Type 2 diabetes mellitus with hyperglycemia; N18.32 Chronic kidney disease, stage 3b; E11.22 Type 2 diabetes mellitus with diabetic chronic kidney disease; G20 Parkinson's disease; E78.5 Hyperlipidemia, unspecified; E88.09 Other disorders of plasma-protein metabolism, not elsewhere classified; F02.80 Dementia in other diseases classified elsewhere, unspecified severity, without behavioral disturbance, psychotic disturbance, mood disturbance, and anxiety; G30.9 Alzheimer's disease, unspecified; I48.91 Unspecified atrial fibrillation; Z86.73 Personal history of transient ischemic attack (TIA), and cerebral infarction without residual deficits; Z91.19 Patient's noncompliance with other medical treatment and regimen; Z90.49 Acquired absence of other specified parts of digestive tract; I50.9 Heart failure, unspecified; Z82.49 Family history of ischemic heart disease and other diseases of the circulatory system; Z90.710 Acquired absence of both cervix and uterus
CPT/HCPCS: 36415; 36600; 71045; 76775; 80048; 80053; 80076; 81001; 82040; 82306; 82570; 82728; 82805; 82962; 83615; 83735; 83880; 83970; 84100; 84156; 84300; 84478; 84484; 85025; 85379; 85610; 85730; 86141; 87040; 87081; 87426; 93005; 93970; 94640; 94660; 96365; 96368; 96375; 96376; G0378; J0696; J1100; J1815; J3490